=== PATIENT | female | born 1970 | race American Indian/Alaskan Native ===

== ENCOUNTER 2017-09-18 15:46 | Outpatient (CLI) | payer BC ==
--- NOTE | 2017-09-19 08:37 | Magnetic Resonance Report ---
FINAL REPORT EXAM: MR BRAIN WO/W CON HISTORY: MALIGNANT NEOPLASM OF UPPER-OUTER QUAD BREAST TECHNIQUE: MRI of the brain was performed. Images include: Sagittal T1, axial diffusion, axial ADC map, axial gradient, axial T2, axial FLAIR, axial T1, coronal FLAIR and postcontrast T1 axial and coronal. PRIORS: None. FINDINGS: There are no abnormal areas of diffusion restriction to indicate acute infarct. There is no edema, mass effect or midline shift. There is no focal signal abnormality seen. The ventricular size is appropriate for brain volume. There is no abnormal extra-axial fluid collection. There are no areas of abnormal contrast enhancement. IMPRESSION: There is no significant abnormality identified.
== END 2017-09-18 15:47 | disposition home or self-care (01) ==
LOC: MRI 15:46
PROVIDERS: ATTEND Internal Medicine Hematology & Oncology
DX: C50.412 Malignant neoplasm of upper-outer quadrant of left female breast (principal); G43.909 Migraine, unspecified, not intractable, without status migrainosus; J45.909 Unspecified asthma, uncomplicated
CPT/HCPCS: 70553; A9577

== ENCOUNTER 2017-12-25 09:25 | Outpatient (CLI) | payer BC ==
--- NOTE | 2017-12-25 10:31 | Mammography Report ---
BILATERAL DIGITAL SCREENING MAMMOGRAM WITH CAD: 12/25/17 09:25:00 CLINICAL: Routine screening.Breast cancer survivor status post left partial mastectomy ,radiation therapy and chemotherapy. Status post right benign stereotactic biopsy. COMPARISON:06/22/16 FINDINGS: The breasts are heterogeneously dense, which may obscure small masses. Left upper outer benign postsurgical scar. Scattered bilateral benign calcifications. A right outer biopsy clip. No mass, suspicious architectural distortion or suspicious calcifications. IMPRESSION: No mammographic evidence of malignancy. BI-RADS CATEGORY: 2 -- Benign RECOMMENDATION: Routine mammographic screening in one year. COMMENT: Patient follow-up letters are generated via our [employer] application.
== END 2017-12-25 09:26 | disposition home or self-care (01) ==
LOC: SPVWC 09:25
PROVIDERS: ATTEND Surgery
DX: Z12.31 Encounter for screening mammogram for malignant neoplasm of breast (principal); I10 Essential (primary) hypertension; J45.909 Unspecified asthma, uncomplicated; D64.9 Anemia, unspecified; Z88.6 Allergy status to analgesic agent
CPT/HCPCS: 77067

== ENCOUNTER 2019-01-21 15:15 | Outpatient (CLI) | payer BC ==
--- NOTE | 2019-01-21 16:26 | Mammography Report ---
BILATERAL DIGITAL SCREENING MAMMOGRAM WITH CAD INDICATION: Routine screening mammography. Breast cancer survivor status post left partial mastectomy . TECHNIQUE: Digital bilateral 2D mammography was obtained in the craniocaudal and mediolateral obliq ue projections. This examination was interpreted with the benefit of Computer-Aided Detection analysi s. COMPARISON: 12/25/2017 FINDINGS: Breast Density: The breasts are heterogeneously dense, which may obscure small masses. No mass, suspicious architectural distortion or suspicious calcifications. A right outer biopsy clip. Benign left upper outer postsurgical scar. IMPRESSION:No mammographic evidence of malignancy. BI-RADS Category 2: Benign. No mammographic evidence of malignancy. Recommend routine screening ma mmography in one year. A "normal" or negative report should not discourage follow up or biopsy of a clinically significant f inding. A written summary of these findings will be mailed to the patient. The patient will be entered into a mammography reporting system which will generate a reminder letter for the patient's next appointmen t at the appropriate interval. The [employer] recommends yearly mammograms starting at age 40 and continuing as l felicia as a woman is in good health. Breast MRI is recommended for women with an approximate 20-25% or greater lifetime risk of breast cancer, including women with a strong family history of breast or ova flavio cancer or who have been treated for Hodgkin's disease. Signer Name: Javier Frank MD Signed: 01/21/2019 4:22 PM Workstation Name: [id number]
== END 2019-01-21 15:16 | disposition home or self-care (01) ==
LOC: SPVWC 15:15
PROVIDERS: ATTEND Surgery
DX: Z12.31 Encounter for screening mammogram for malignant neoplasm of breast (principal); I10 Essential (primary) hypertension; K21.9 Gastro-esophageal reflux disease without esophagitis; Z90.89 Acquired absence of other organs
CPT/HCPCS: 77067

== ENCOUNTER 2019-08-13 14:59 | Outpatient (CLI) | payer BC ==
--- NOTE | 2019-08-14 13:40 | Magnetic Resonance Report ---
BILATERAL BREAST MRI WITH AND WITHOUT CONTRAST HISTORY: Screening breast MRI, patient with history of left lumpectomy. COMPARISON: 01/21/2019, 01/10/2016. TECHNIQUE: Pre- and post-contrast bilateral MRI mammographic evaluation was performed on a 1.5 Safia system utilizing a 7 channel breast coil both before and after the uneventful intravenous administrat ion contrast. Post-processed subtraction images were acquired. The evaluation was reviewed using [employer] CAD computer-aided detection software. FINDINGS: Breasts demonstrate mild background parenchymal enhancement bilaterally. LEFT BREAST: There is a 1.9 x 0.4 x 0.5 cm peripheral enhancing serpiginous structure within the left slightly superior subareolar breast, possibly intraductal. Mild distortion within the left upper out er posterior breast is noted at site of prior lumpectomy. RIGHT BREAST: No discrete enhancing mass, dominant focus, or other abnormal enhancement is identified within the right breast. No abnormal axillary or internal mammary lymph nodes. Incidentally noted are two lobulated circumscribed T2 hyperintense lesions within the anterior right hepatic lobe. The largest of these measures up to 3.1 x 2.4 cm. These are stable compared to 2016 exa m. Long-term stability would support a benign etiology, such as cysts. IMPRESSION: There is a 1.9 x 0.4 x 0.5 cm peripheral enhancing serpiginous structure within the left slightly sup erior subareolar breast, possibly intraductal. A targeted ultrasound is recommended for further evalu ation with possible ultrasound-guided biopsy if a sonographic correlate is identified. BIRADS 2: Benign A normal MRI does not exclude the presence of some forms of breast malignancy as literature reports s uggest that some forms of ductal carcinoma in situ or lobular carcinoma, particularly, may not be det ected on MRI. The sensitivity and specificity of MRI for cancers under 5 mm may be reduced. MRI does not replace the recommendation for annual conventional mammographic evaluation and should be used as an adjunct to mammography and physical examination as necessary. Signer Name: Aroldo Barnett MD Signed: 08/14/2019 1:36 PM Workstation Name: [id number]
== END 2019-08-13 15:00 | disposition home or self-care (01) ==
LOC: SPVIMAG 14:59
PROVIDERS: ATTEND Surgery
DX: Z12.31 Encounter for screening mammogram for malignant neoplasm of breast (principal); Z98.890 Other specified postprocedural states
CPT/HCPCS: A9577; C8908; 77049

== ENCOUNTER 2019-08-28 08:43 | Outpatient (CLI) | payer BC ==
--- NOTE | 2019-08-28 11:13 | Ultrasound Report ---
LEFT BREAST ULTRASOUND HISTORY: Abnormal breast MRI in patient with a history of left breast cancer status post partial mast ectomy. COMPARISON: 08/13/2019 MRI breast FINDINGS: Sonographic evaluation focused upon the retroareolar location of the left breast demonstrat es a single prominent dilated subareolar duct at 12:00. The duct contains a mass measuring 6 x 5 x 2 mm. The findings correlate with the MRI findings. IMPRESSION: A suspicious 6 mm subareolar intraductal mass. Recommend ultrasound-guided vacuum-assisted needle cor e biopsy. Follow up recommendation: Biopsy. BIRADS 4: Suspicious abnormality. Signer Name: Javier Frank MD Signed: 08/28/2019 11:08 AM Workstation Name: [id number]
== END 2019-08-28 08:44 | disposition home or self-care (01) ==
LOC: SPVWC 08:43
PROVIDERS: ATTEND Surgery
DX: R92.8 Other abnormal and inconclusive findings on diagnostic imaging of breast (principal)

== ENCOUNTER 2019-10-08 12:43 | Outpatient (CLI) | payer BC ==
--- NOTE | 2019-10-08 14:04 | Mammography Report ---
DIGITAL DIAGNOSTIC MAMMOGRAM WITH CAD, 10/08/2019 INDICATION: POST CLIP LT TECHNIQUE: Digital left mammographic imaging was performed. This examination was interpreted with the benefit of Computer-aided Detection analysis. COMPARISON: 01/21/2019 FINDINGS: Breast Density: The breasts are heterogeneously dense, which may obscure small masses. A retroareolar U-shaped biopsy clip correlates with today's ultrasound guided needle biopsy site. IMPRESSION: Concordant clip deployment Follow up recommendation: No recall. Post biopsy imaging. A "normal" or negative report should not discourage follow up or biopsy of a clinically significant f inding. A written summary of these findings will be mailed to the patient. The patient will be entered into a mammography reporting system which will generate a reminder letter for the patient's next appointmen t at the appropriate interval. According to the [employer], yearly mammograms are recommended starting at age 40 and continuing as long as a woman is in good health. Breast MRI is recommended for women with an david roximately 20-25% or greater lifetime risk of breast cancer, including women with a strong family his tory of breast or ovarian cancer and women who have been treated for Hodgkin's disease. Signer Name: Javier Frank MD Signed: 10/08/2019 1:59 PM Workstation Name: [id number]
--- NOTE | 2019-10-08 14:06 | Ultrasound Report ---
ULTRASOUND-GUIDED VACUUM-ASSISTED NEEDLE CORE BIOPSY LEFT BREAST WITH CLIP PLACEMENT CLINICAL: Mild duct ectasia and suspicious intraductal mass. FINDINGS: The procedure was explained to the patient and informed consent was obtained. Ultrasound demonstrated the previously identified retroareolar lesion.. I marked the breast with a felt tip marker and a timeout was called. The skin was prepped with Chloro -Prep and anesthetized with 1% lidocaine. Vacuum-assisted needle core biopsy was performed through tiny dermatotomy using ultrasound guidance, 2% lidocaine with epinephrine for deep anesthesia and a 13-gauge Mammotome Elite biopsy device. 5 cor es were obtained and placed in formalin. The lesion disappeared and a clip was deployed at the site o f the biopsy. The patient tolerated the procedure well and there were no apparent complications. Hemo stasis was achieved with minimal effort and a sterile dressing was applied. A post procedure mammogram demonstrated concordant clip deployment. She left the department in good c ondition and was given instructions for wound care and follow-up. IMPRESSION: Uncomplicated ultrasound guided vacuum assisted needle core biopsy with clip placement le ft breast. Signer Name: Javier Frank MD Signed: 10/08/2019 2:02 PM Workstation Name: [id number]
== END 2019-10-08 12:44 | disposition home or self-care (01) ==
LOC: SPVWC 12:43
PROVIDERS: ATTEND Surgery
DX: N60.42 Mammary duct ectasia of left breast (principal); R92.8 Other abnormal and inconclusive findings on diagnostic imaging of breast; R92.2 Inconclusive mammogram; G43.909 Migraine, unspecified, not intractable, without status migrainosus; I10 Essential (primary) hypertension; K21.9 Gastro-esophageal reflux disease without esophagitis; D64.9 Anemia, unspecified; Z79.899 Other long term (current) drug therapy; Z88.5 Allergy status to narcotic agent; Z85.3 Personal history of malignant neoplasm of breast; Z98.891 History of uterine scar from previous surgery; Z98.890 Other specified postprocedural states
CPT/HCPCS: 88305

== ENCOUNTER 2020-02-04 08:14 | Outpatient (CLI) | payer BC ==
--- NOTE | 2020-02-04 12:20 | Mammography Report ---
DIGITAL SCREENING MAMMOGRAM WITH CAD, 02/04/2020 INDICATION: Routine screening mammography. History of left breast malignancy treated with lumpectomy and radiation. TECHNIQUE: Digital bilateral 2D mammography was obtained in the craniocaudal and mediolateral obliq ue projections. This examination was interpreted with the benefit of Computer-Aided Detection analysi s. COMPARISON: 12/25/2017 FINDINGS: Breast Density: The breasts are heterogeneously dense, which may obscure small masses. There is no evidence of dominant mass, suspicious calcifications or architectural distortion in eithe r breast. Postlumpectomy scarring is present on the left. Benign calcifications are present in the up per outer quadrant of the left breast. Bilateral biopsy clips are stable in position. Overall, no sig nificant interval change since prior exam. IMPRESSION: Benign findings. No evidence of malignancy. Follow up recommendation: Routine yearly BI-RADS Category 2: Benign. A "normal" or negative report should not discourage follow up or biopsy of a clinically significant f inding. A written summary of these findings will be mailed to the patient. The patient will be entered into a mammography reporting system which will generate a reminder letter for the patient's next appointmen t at the appropriate interval. The [employer] recommends yearly mammograms starting at age 40 and continuing as l felicia as a woman is in good health. Breast MRI is recommended for women with an approximate 20-25% or greater lifetime risk of breast cancer, including women with a strong family history of breast or ova flavio cancer or who have been treated for Hodgkin's disease. Signer Name: Anusha Velazquez MD Signed: 02/04/2020 12:16 PM Workstation Name: [id number]
== END 2020-02-04 08:15 | disposition home or self-care (01) ==
LOC: SPVWC 08:14
PROVIDERS: ATTEND Surgery
DX: Z12.31 Encounter for screening mammogram for malignant neoplasm of breast (principal)
CPT/HCPCS: 77067

== ENCOUNTER 2020-03-23 09:15 | Outpatient (CLI) | payer BC ==
--- NOTE | 2020-03-24 09:01 | Ultrasound Report ---
LEFT BREAST ULTRASOUND INDICATION: Follow-up evaluation after benign left retroareolar breast biopsy COMPARISON: 02/04/2020, 10/08/2019, 08/28/2019. FINDINGS: Targeted ultrasound focused in left subareolar breast was performed to assess the site of a prior benign biopsy. Per report, the biopsy in this region revealed duct ectasia and fat necrosis. V clarissa minimally dilated duct is noted in this region. No evidence of intraductal mass or residual suspi cious finding. No evidence of malignancy. IMPRESSION: No evidence of malignancy on follow-up evaluation after benign left retroareolar breast biopsy. A rou rosalba screening mammogram due in February 2021 is recommended. BI-RADS Category 2: Benign. Recommend routine screening mammography in one year A "normal" or negative report should not discourage follow up or biopsy of a clinically significant f inding. A written summary of these findings will be mailed to the patient. FURTHER INFORMATION: According to the [employer], yearly mammograms are recommend ed starting at age 40 and continuing as long as a woman is in good health. Breast MRI is recommended for women with an approximately 20-25% or greater lifetime risk of breast cancer, including women wi th a strong family history of breast or ovarian cancer and women who have been treated for Hodgkin's disease. Signer Name: Aroldo Barnett MD Signed: 03/24/2020 8:56 AM Workstation Name: [id number]
== END 2020-03-23 09:16 | disposition home or self-care (01) ==
LOC: SPVWC 09:15
PROVIDERS: ATTEND Surgery
DX: Z85.3 Personal history of malignant neoplasm of breast (principal)

== ENCOUNTER 2021-09-23 13:13 | Outpatient (CLI) | payer BC ==
--- NOTE | 2021-09-23 17:02 | Mammography Report ---
DIGITAL DIAGNOSTIC MAMMOGRAM WITH CAD CONVENTIONAL, 09/23/2021 CLINICAL INFORMATION / INDICATION: Bilateral breast pain c50.412 TECHNIQUE: Digital bilateral mammographic imaging was performed. Spot compression views were obtaine d. This examination was interpreted with the benefit of Computer-aided Detection analysis. COMPARISON: 02/04/2020, 01/21/2019 FINDINGS: Breast Density: There are scattered areas of fibroglandular density. No dominant mass, suspicious calcifications or architectural distortion in either breast. Postbiopsy change to the right breast IMPRESSION: No mammographic evidence of malignancy. Follow up recommendation: Routine yearly BI-RADS Category 2: BENIGN. A "normal" or negative report should not discourage follow up or biopsy of a clinically significant f inding. A written summary of these findings will be mailed to the patient. The patient will be entered into a mammography reporting system which will generate a reminder letter for the patient's next appointmen t at the appropriate interval. According to the [employer], yearly mammograms are recommended starting at age 40 and continuing as long as a woman is in good health. Breast MRI is recommended for women with an david roximately 20-25% or greater lifetime risk of breast cancer, including women with a strong family his tory of breast or ovarian cancer and women who have been treated for Hodgkin's disease. Signer Name: Brice Hernandez DO Signed: 09/23/2021 4:57 PM Workstation Name: [id number]
== END 2021-09-23 13:14 | disposition home or self-care (01) ==
LOC: MAMMO 13:13
PROVIDERS: ATTEND Internal Medicine Hematology & Oncology
DX: C50.412 Malignant neoplasm of upper-outer quadrant of left female breast (principal); D70.9 Neutropenia, unspecified; Z51.11 Encounter for antineoplastic chemotherapy; E86.9 Volume depletion, unspecified; G43.909 Migraine, unspecified, not intractable, without status migrainosus; N94.10 Unspecified dyspareunia; D64.81 Anemia due to antineoplastic chemotherapy; R92.2 Inconclusive mammogram
CPT/HCPCS: 77066